=== PATIENT | female | born 1935 | race Caucasian/White ===

== ENCOUNTER → 2017-06-08 | Outpatient (CLI) | payer OTHER ==
[~2017-06-08] MED LIST: ACT15; ACT30 PO; AMB5 PO; ASPIR-LOW81 M1 PO; ATIVAN0.5 M1 PO; BUS10 PO; COL100 PO; ESCITALOPRAM PO; GENOVIA; GLU850 PO; JANUVIA PO; LEVOTHYROXINE0.05 M2 PO; LEXAPRO10 MG PO; LOPERAMIDE1 MG/5 M1 PO; LOPERAMIDE2 MG PO; TOP50 PO; ZES10 PO
[2017-06-08 11:17] LABS: BASOPHIL % 0.3 % (0-2); PLATELET COUNT 363 x10^3mcL (130-400); RED CELL DISTRIBUTION WIDTH 13.8 % (11.5-14.5)
[2017-06-08 11:21] LABS: ALBUMIN 3.6 g/dL (3.4-5.0); ALKALINE PHOSPHATASE 102 U/L (46-116); ALT/SGPT 26 U/L (14-59); AST/SGOT 18 U/L (15-37); BILIRUBIN TOTAL 0.4 mg/dL (0.20-1.00); CALCIUM 9.4 mg/dL (8.5-10.1); CARBON DIOXIDE 25.5 mmol/L (21-32); CHLORIDE SERUM 100 mmol/L (98-107); CHOLESTEROL 228 mg/dL (<200); CREATININE SERUM 1.1 mg/dL (0.6-1.0); GLUCOSE SERUM 174 mg/dL (74-106); HDL CHOLESTEROL 46 mg/dL (40-60); POTASSIUM SERUM 4.5 mmol/L (3.5-5.1); SODIUM SERUM 134 mmol/L (136-145); TOTAL PROTEIN, SERUM 7.6 g/dL (6.4-8.2); TRIGLYCERIDES 144 mg/dL (<150)
[2017-06-08 11:28] LABS: FREE T4 1.14 ng/dL (0.76-1.46); FREE THYROXINE INDEX 2.9 ug/dL (1.4-4.5); T4(THYROXINE) 9.1 ug/dL (4.7-13.3)
[2017-06-08 12:50] LABS: T3 TOTAL 0.91 ng/mL
[2017-06-09 13:05] LABS: microalbumin:creatinine ratio 24.4 (0.0-30.0)
== END | disposition home or self-care (01) ==
LOC: LB 10:26
PROVIDERS: Family Medicine
DX: E11.9 Type 2 diabetes mellitus without complications (principal); E03.9 Hypothyroidism, unspecified; I10 Essential (primary) hypertension
CPT/HCPCS: 84439